=== PATIENT | male | born 1930 | race Caucasian/White ===

== ENCOUNTER 2016-08-19 14:03 | Emergency (ER) | payer MEDICARE ==
[~2016-08-19] VITALS: Ht 172.7 cm; Wt 59.0 kg
[2016-08-19 14:05] VITALS: BP 125/55; PULSE 80; RESP 16; TEMP 98.2; O2SAT 98
[2016-08-19] MEDS ORDERED: LISI-519 PO (14:43)
[2016-08-19] MEDS ORDERED: SODIUM CHLOR 0.9% 1000 ML INJ 1,000 ML IV ONE (14:45)
[2016-08-19 15:03] LABS: AUTOMATED NEUTROPHIL # 10.7 TH/MM3 (1.8-7.7); BASOPHIL # 0.2 TH/MM3 (0-0.2); BASOPHIL % 1.9 % (0.0-2.0); EOSINOPHIL % 0.2 % (0.0-4.0); HEMATOCRIT 38.4 % (39.0-51.0); HEMO FLAGS DIFF FINAL; LYMPH % 2.5 % (9.0-44.0); LYMPHOCYTE # 0.3 TH/MM3 (1.0-4.8); MEAN CELL VOLUME 93.1 FL (80.0-100.0); MEAN CORPUSCULAR HEMOGLOBIN 31.9 PG (27.0-34.0); MEAN CORPUSCULAR HGB CONC 34.2 % (32.0-36.0); MONO % 3.4 % (0.0-8.0); PLATELET COUNT 175 TH/MM3 (150-450); RED BLOOD COUNT 4.12 MIL/MM3 (4.50-5.90); RED CELL DISTRIBUTION WIDTH 12.6 % (11.6-17.2); WHITE BLOOD COUNT 11.6 TH/MM3 (4.0-11.0)
[2016-08-19 15:20] LABS: GLOMERULAR FILTRATION RATE 71 ML/MIN (>89)
[2016-08-19 15:21] LABS: CHLORIDE 103 MEQ/L (98-107); POTASSIUM 4.3 MEQ/L (3.5-5.1); SODIUM (NA) 141 MEQ/L (136-145)
[2016-08-19 15:22] LABS: BLOOD UREA NITROGEN 31 MG/DL (7-18)
--- NOTE | 2016-08-19 15:26 | PD ---
HPI Chief Complaint: GI Complaint Time Seen by Provider: 14:22 Travel History International Travel<30 days: No Contact w/Intl Traveler<30days: No Traveled to known affect area: No History of Present Illness HPI Patient is an 86-year-old male who comes in complaining of feeling shaky. He says that he had 2 days of constipation, he took 2 suppositories as well as a Fleet enema this morning and had a large bowel movement. Shortly afterwards he felt very shaky and his took his blood pressure and it was low. On arrival here, his blood pressure is 125/55. He says he is feeling cold, but otherwise he is feeling a little bit better. His said she gave him some Gatorade and that seemed to have helped. He said he had a little bit of abdominal pain prior to this occurring, but it felt like he just needed to use the bathroom. He denies any chest pain or shortness of breath. He says he had some pain in his rectum with straining. He has not noticed any blood in his stool. [facility] Past Medical History Hypertension: Yes Influenza Vaccination: Yes Social History Alcohol Use: Yes (OCCAS) Tobacco Use: No Substance Use: No Allergies-Medications (Allergen,Severity, Reaction): Coded Allergies: Indocin (Verified Allergy, Intermediate, HIVES, 08/19/16) Reported Meds & Prescriptions Reported Meds & Active Scripts Active Reported Lisinopril 5 Mg Tab 5 Mg PO DAILY Review of Systems Except as stated in HPI: all other systems reviewed are Neg General / Constitutional: Positive: Chills, No: Fever Eyes: No: Blurred Vision HENT: No: Headaches, Lightheadedness Cardiovascular: No: Chest Pain or Discomfort Respiratory: No: Shortness of Breath Gastrointestinal: Positive: Constipation, No: Nausea, Vomiting Genitourinary: No: Dysuria Musculoskeletal: No: Myalgias Skin: No Rash, No Change in Pigmentation Neurologic: Positive: Weakness Physical Exam Narrative GENERAL: Awake and alert, in no acute distress. SKIN: Focused skin assessment warm/dry. HEAD: Atraumatic. Normocephalic. EYES: Pupils equal and round. No scleral icterus. ENT: Mucous membranes pink and moist. NECK: Trachea midline. No JVD. CARDIOVASCULAR: Regular rate and rhythm. No murmur appreciated. RESPIRATORY: No accessory muscle use. Clear to auscultation. Breath sounds equal bilaterally. GASTROINTESTINAL: Abdomen soft, non-tender, nondistended. RECTAL: No bleeding, no masses. Mild tenderness on palpation. MUSCULOSKELETAL: No obvious deformities. No clubbing. No cyanosis. No edema. NEUROLOGICAL: Awake and alert. No obvious cranial nerve deficits. Motor grossly within normal limits. Normal speech. PSYCHIATRIC: Appropriate mood and affect; insight and judgment normal. Data Data Last Documented VS Vital Signs Date Time Temp Pulse Resp B/P Pulse Ox O2 Delivery O2 Flow Rate FiO2 08/19/16 14:05 98.2 80 16 125/55 98 Orders Complete Blood Count With Diff (08/19/16 14:40) Comprehensive Metabolic Panel (08/19/16 14:40) Electrocardiogram (08/19/16 ) Sodium Chlor 0.9% 1000 Ml Inj (Ns 1000 M (08/19/16 14:45) Labs Laboratory Tests Test 08/19/16 14:54 White Blood Count 11.6 TH/MM3 Red Blood Count 4.12 MIL/MM3 Hemoglobin 13.1 GM/DL Hematocrit 38.4 % Mean Corpuscular Volume 93.1 FL Mean Corpuscular Hemoglobin 31.9 PG Mean Corpuscular Hemoglobin 34.2 % Concent Red Cell Distribution Width 12.6 % Platelet Count 175 TH/MM3 Mean Platelet Volume 8.0 FL Neutrophils (%) (Auto) 92.0 % Lymphocytes (%) (Auto) 2.5 % Monocytes (%) (Auto) 3.4 % Eosinophils (%) (Auto) 0.2 % Basophils (%) (Auto) 1.9 % Neutrophils # (Auto) 10.7 TH/MM3 Lymphocytes # (Auto) 0.3 TH/MM3 Monocytes # (Auto) 0.4 TH/MM3 Eosinophils # (Auto) 0.0 TH/MM3 Basophils # (Auto) 0.2 TH/MM3 CBC Comment DIFF FINAL Differential Comment Sodium Level 141 MEQ/L Potassium Level 4.3 MEQ/L Chloride Level 103 MEQ/L Blood Urea Nitrogen 31 MG/DL Creatinine 1.00 MG/DL Estimat Glomerular Filtration 71 ML/MIN Rate Random Glucose 97 MG/DL [facility] Medical Decision Making Medical Screen Exam Complete: Yes Emergency Medical Condition: Yes Medical Record Reviewed: Yes Differential Diagnosis Dehydration versus constipation versus anemia versus electrolyte abnormality Narrative Course Patient is an 86-year-old male who comes in after episode of shakiness after having a very large bowel movement. Exam shows no acute abnormalities. IV established, labs sent. Patient given IV fluids. Labs are suggestive of dehydration with a BUNs of 31 and a creatinine of 1.0. Patient reports feeling better after IV fluids. He is no longer shaking. He has no other complaints. His abdomen is soft and nontender. He has an appointment with his primary care doctor in the next week. Advised follow-up at this appointment. Advised to increase his fluid intake. Advised to increase his fiber intake. Advised to return to the ED as needed for any worsening symptoms. Both he and his are comfortable with discharge at this time. Diagnosis Primary Impression: Dehydration Patient Instructions: Constipation (ED), Dehydration (ED), General Instructions Additional Instructions: Increase your fluid intake. Follow up with your primary care doctor. Return to the ED as needed for any worsening symptoms. Disposition: 01 DISCHARGE HOME Condition: Stable Irma Amanda MD August 19, 2016 15:26
[2016-08-19 16:31] LABS: ALKALINE PHOSPHATASE 73 U/L (45-117); TOTAL BILIRUBIN ADULT 0.7 MG/DL (0.2-1.0)
[2016-08-19 16:37] LABS: ALT (GPT) 26 U/L (12-78); ANION GAP 6 MEQ/L (5-15); AST (GOT) 28 U/L (15-37); BICARBONATE 31.6 MEQ/L (21.0-32.0)
--- NOTE | 2016-08-20 09:35 | EKG ---
Date Performed: 08/19/2016 Time Performed: 15:08:54 PTAGE: 86 years EKG: Sinus rhythm with PAC(s) Right bundle branch block Abnormal ECG NO PREVIOUS TRACING DOCTOR: Kirt Engel Interpretating Date/Time 08/20/2016 09:33:35
== END 2016-08-19 16:42 | disposition home or self-care (01) ==
LOC: PHED 14:03
DX: E86.0 Dehydration (principal); K59.00 Constipation, unspecified; I10 Essential (primary) hypertension; I45.10 Unspecified right bundle-branch block
CPT/HCPCS: 80053; 85025; 93005; 96360; 99284; J7030

== ENCOUNTER 2016-08-20 19:18 | Emergency (ER) | payer MEDICARE ==
[~2016-08-20] VITALS: Ht 172.7 cm; Wt 58.0 kg
[~2016-08-20 19:18] MED LIST: LISI-519 PO
[2016-08-20 19:21] VITALS: BP 163/84; PULSE 96; RESP 16; TEMP 97.9; O2SAT 97
== END 2016-08-20 20:45 | disposition left against medical advice (07) ==
LOC: NED 19:18
DX: N50.9 Disorder of male genital organs, unspecified (principal)
CPT/HCPCS: 99281

== ENCOUNTER 2017-09-11 10:57 | Inpatient (IN) | payer MEDICARE ==
[2017-09-11] VITALS (13 sets, daily range): BP systolic 73–157; BP diastolic 52–79; PULSE 58–118; RESP 12–20; TEMP 97.5–98; O2SAT 96–99
[~2017-09-11] VITALS: Ht 172.7 cm; Wt 55.3 kg
[2017-09-11] MEDS ORDERED: RAPA8CAP PO (11:15)
[2017-09-11] MEDS ORDERED: FINA5TAB2 (11:15)
[2017-09-11] MEDS ORDERED: LISI-519 PO (11:15)
[2017-09-11] MEDS ORDERED: METO25TA3 PO (11:15)
[2017-09-11] MEDS ORDERED: SODIUM CHLORID 0.9% 500 ML INJ 500 ML IV ONE ×3 (11:30→13:30)
[2017-09-11] MEDS ORDERED: SODIUM CHLORIDE 0.9% FLUSH 10 ML FLUSH IVF PRN (11:30)
[2017-09-11 11:47] LABS: HEMATOCRIT 41.8 % (39.0-51.0); HEMOGLOBIN 13.9 GM/DL (13.0-17.0); MEAN CELL VOLUME 97.4 FL (80.0-100.0); MEAN CORPUSCULAR HEMOGLOBIN 32.4 PG (27.0-34.0); MEAN CORPUSCULAR HGB CONC 33.2 % (32.0-36.0); PLATELET COUNT 206 TH/MM3 (150-450); RED BLOOD COUNT 4.29 MIL/MM3 (4.50-5.90); RED CELL DISTRIBUTION WIDTH 12.7 % (11.6-17.2); WHITE BLOOD COUNT 5.4 TH/MM3 (4.0-11.0)
[2017-09-11 11:48] LABS: AUTOMATED NEUTROPHIL # 3.5 TH/MM3 (1.8-7.7); BASOPHIL # 0.1 TH/MM3 (0-0.2); BASOPHIL % 1.4 % (0.0-2.0); EOSINOPHIL # 0.1 TH/MM3 (0-0.4); EOSINOPHIL % 1.2 % (0.0-4.0); LYMPH % 21.5 % (9.0-44.0); LYMPHOCYTE # 1.2 TH/MM3 (1.0-4.8); MEAN PLATELET VOLUME 7.9 FL (7.0-11.0); MONO % 10.1 % (0.0-8.0); MONOCYTE # 0.5 TH/MM3 (0-0.9); NEUT % 65.8 % (16.0-70.0)
[2017-09-11 11:54] LABS: CHLORIDE 102 MEQ/L (98-107); SODIUM (NA) 138 MEQ/L (136-145)
[2017-09-11 11:57] LABS: CALCIUM 8.9 MG/DL (8.5-10.1)
[2017-09-11 11:58] LABS: ALBUMIN 3.5 GM/DL (3.4-5.0); BICARBONATE 30.3 MEQ/L (21.0-32.0); BLOOD UREA NITROGEN 26 MG/DL (7-18); GLUCOSE,RANDOM 89 MG/DL (74-106)
[2017-09-11 12:01] LABS: ALT (GPT) 26 U/L (12-78); AST (GOT) 17 U/L (15-37); GLOMERULAR FILTRATION RATE 57 ML/MIN (>89); INTERNATIONAL NORMALIZED RATIO 1.1 RATIO; PROTHROMBIN TIME - PATIENT 10.9 SEC (9.8-11.6)
[2017-09-11 12:03] LABS: TOTAL BILIRUBIN ADULT 0.5 MG/DL (0.2-1.0); TOTAL PROTEIN 6.4 GM/DL (6.4-8.2)
[2017-09-11 12:04] LABS: ALKALINE PHOSPHATASE 65 U/L (45-117)
[2017-09-11 12:06] LABS: TROPONIN I LESS THAN 0.02 NG/ML (0.02-0.05)
--- NOTE | 2017-09-11 12:06 | RADRPT ---
EXAM DATE: 09/11/2017 11:57 AM EDT AGE/SEX: 87 years / Male INDICATIONS: Dizziness. CLINICAL DATA: This is the patient's initial encounter. Patient reports that signs and symptoms have been present for 1 day and indicates a pain score of 0/10. MEDICAL/SURGICAL HISTORY: Hypertension. . Hernia repair. RADIATION DOSE: 54.19 CTDI (mGy) COMPARISON: No prior exams available for comparison. TECHNIQUE: CT of the head without contrast. Using automated exposure control and adjustment of the mA and/or kV according to patient size, radiation dose was kept as low as reasonably achievable to ob tain optimal diagnostic quality images. DICOM format image data is available electronically for revi ew and comparison. FINDINGS: Cerebrum: The ventricles are normal for age. There is bilateral cortical atrophy and chronic white matter changes characteristic for patient's age. No evidence of midline shift, mass lesion, hemorrhag e or acute infarction. No extraaxial fluid collections are seen. Posterior Fossa: The cerebellum and brainstem are intact. The 4th ventricle is midline. The cerebe llopontine angle is unremarkable. Extracranial: The visualized portion of the orbits is intact. Skull: The calvaria is intact. No evidence of skull fracture. CONCLUSION: 1. No focal or acute intracranial hemorrhage. 2. Chronic bilateral cortical atrophy and chronic white matter changes. Electronically signed by: Dario Cueva MD 09/11/2017 12:04 PM EDT
--- NOTE | 2017-09-11 12:10 | RADRPT ---
EXAM DATE: 09/11/2017 11:44 AM EDT AGE/SEX: 87 years / Male INDICATIONS: Chest pain CLINICAL DATA: This is the patient's initial encounter. Patient reports that signs and symptoms have been present for 2 days and indicates a pain score of 5/10. MEDICAL/SURGICAL HISTORY: Hypertension. . Hernia repaired COMPARISON: No prior exams available for comparison. FINDINGS: A single AP view of the chest demonstrates the lungs to be symmetrically aerated without evidence of mass, infiltrate or effusion. There is hyperaeration of both lung mathur. The cardiomediastinal cont ours are unremarkable. Osseous structures are intact. CONCLUSION: No acute intrathoracic disease. Electronically signed by: Dario Cueva MD 09/11/2017 12:09 PM EDT
[2017-09-11] MEDS ORDERED: GLUCAGON 1 MG/ML VIAL IV PUSH ONE (13:30)
--- NOTE | 2017-09-11 14:19 | PD ---
HPI Chief Complaint: Cardiac Complaint Time Seen by Provider: 11:16 Travel History International Travel<30 days: No Contact w/Intl Traveler<30days: No Traveled to known affect area: No History of Present Illness HPI Patient is an 87-year-old male who comes in due to dizziness, and feeling unwell. He has been having issues with his blood pressure and heart rate for the past several months. He went to see Dr. Cruz, his parking enforcer on Thursday who increased his metoprolol. He took 25 mg of metoprolol this morning because his pulse was elevated, but his blood pressure was low. He also takes lisinopril, but his says only as needed for high blood pressure. He has not taken this today. He takes finasteride as well for BPH. He says he felt dizzy when standing today. He denies any chest pain or shortness of breath. He denies nausea or vomiting. He denies fever or chills. Severity is moderate. PFSH Past Medical History Diminished Hearing: No Genitourinary: Yes (Prostate) Hypertension: Yes Tetanus Vaccination: Unknown Influenza Vaccination: Yes ?: Not Past Surgical History Abdominal Surgery: Yes (hernia repair x2) Social History Alcohol Use: Yes (OCCAS) Tobacco Use: No Substance Use: No Allergies-Medications (Allergen,Severity, Reaction): Coded Allergies: indomethacin (Unverified Allergy, Intermediate, HIVES, 09/11/17) Reported Meds & Prescriptions Reported Meds & Active Scripts Active Reported Rapaflo (Silodosin) 8 Mg Cap 8 Mg PO EVERY THIRD DAY Finasteride 5 Mg Tab 5 Mg EVERY OTHER DAY Do not crush. Metoprolol Tartrate 25 Mg Tab 12.5 Mg PO DAILY Lisinopril 5 Mg Tab 5 Mg PO DIRECTED Review of Systems Except as stated in HPI: all other systems reviewed are Neg General / Constitutional: No: Fever, Chills HENT: Positive: Lightheadedness, No: Headaches Cardiovascular: No: Chest Pain or Discomfort Respiratory: No: Shortness of Breath Gastrointestinal: No: Nausea, Vomiting Musculoskeletal: No: Myalgias, Edema Skin: No Rash, No Change in Pigmentation Neurologic: Positive: Dizziness Physical Exam Narrative GENERAL: Awake and alert, no acute distress. SKIN: Focused skin assessment warm/dry. No wounds or signs of infection. HEAD: Atraumatic. Normocephalic. EYES: Pupils equal and round. No scleral icterus. Extraocular movements intact. ENT: Mucous membranes pink and moist. NECK: Trachea midline. No JVD. CARDIOVASCULAR: Tachycardia. No murmur appreciated. RESPIRATORY: No accessory muscle use. Clear to auscultation. Breath sounds equal bilaterally. GASTROINTESTINAL: Abdomen soft, non-tender, nondistended. MUSCULOSKELETAL: No obvious deformities. No clubbing. No cyanosis. No edema. NEUROLOGICAL: Awake and alert. No obvious cranial nerve deficits. Motor grossly within normal limits. Normal speech. PSYCHIATRIC: Appropriate mood and affect; insight and judgment normal. Data Data Last Documented VS Vital Signs Date Time Temp Pulse Resp B/P (MAP) Pulse Ox O2 Delivery O2 Flow Rate FiO2 09/11/17 13:15 98.0 109 15 73/61 (65) 98 Room Air Orders Orders Electrocardiogram (09/11/17 11:26) Ckmb (Isoenzyme) Profile (09/11/17 11:26) Complete Blood Count With Diff (09/11/17 11:26) Comprehensive Metabolic Panel (09/11/17 11:26) Prothrombin Time / Inr (Pt) (09/11/17 11:26) Act Partial Throm Time (Ptt) (09/11/17 11:26) Troponin I (09/11/17 11:26) Chest, Single Ap (09/11/17 11:26) Ecg Monitoring (09/11/17 11:26) Bilateral Bp Monitoring (09/11/17 11:26) Iv Access Insert/Monitor (09/11/17 11:26) Oximetry (09/11/17 11:26) Sodium Chloride 0.9% Flush (Ns Flush) (09/11/17 11:30) Sodium Chlorid 0.9% 500 Ml Inj (Ns 500 M (09/11/17 11:30) Ct Brain W/O Iv Contrast(Rout) (09/11/17 ) CKMB (09/11/17 11:36) CKMB% (09/11/17 11:36) Sodium Chlorid 0.9% 500 Ml Inj (Ns 500 M (09/11/17 12:30) Glucagon Inj (Glucagon Inj) (09/11/17 13:30) Sodium Chlorid 0.9% 500 Ml Inj (Ns 500 M (6/22/18 13:30) Labs Laboratory Tests Test 09/11/17 11:36 White Blood Count 5.4 TH/MM3 Red Blood Count 4.29 MIL/MM3 Hemoglobin 13.9 GM/DL Hematocrit 41.8 % Mean Corpuscular Volume 97.4 FL Mean Corpuscular Hemoglobin 32.4 PG Mean Corpuscular Hemoglobin Concent 33.2 % Red Cell Distribution Width 12.7 % Platelet Count 206 TH/MM3 Mean Platelet Volume 7.9 FL Neutrophils (%) (Auto) 65.8 % Lymphocytes (%) (Auto) 21.5 % Monocytes (%) (Auto) 10.1 % Eosinophils (%) (Auto) 1.2 % Basophils (%) (Auto) 1.4 % Neutrophils # (Auto) 3.5 TH/MM3 Lymphocytes # (Auto) 1.2 TH/MM3 Monocytes # (Auto) 0.5 TH/MM3 Eosinophils # (Auto) 0.1 TH/MM3 Basophils # (Auto) 0.1 TH/MM3 CBC Comment DIFF FINAL Differential Comment Prothrombin Time 10.9 SEC Prothromb Time International Ratio 1.1 RATIO Activated Partial Thromboplast Time 27.6 SEC Blood Urea Nitrogen 26 MG/DL Creatinine 1.20 MG/DL Random Glucose 89 MG/DL Total Protein 6.4 GM/DL Albumin 3.5 GM/DL Calcium Level 8.9 MG/DL Alkaline Phosphatase 65 U/L Aspartate Amino Transf (AST/SGOT) 17 U/L Alanine Aminotransferase (ALT/SGPT) 26 U/L Total Bilirubin 0.5 MG/DL Sodium Level 138 MEQ/L Potassium Level 4.2 MEQ/L Chloride Level 102 MEQ/L Carbon Dioxide Level 30.3 MEQ/L Anion Gap 6 MEQ/L Estimat Glomerular Filtration Rate 57 ML/MIN Total Creatine Kinase 114 U/L Creatine Kinase MB 4.3 NG/ML Troponin I LESS THAN 0.02 NG/ML MDM Medical Decision Making Medical Screen Exam Complete: Yes Emergency Medical Condition: Yes Medical Record Reviewed: Yes Interpretation(s) ECG shows a right bundle branch block, SVT at a rate of 110 Differential Diagnosis Medication interaction versus dehydration versus arrhythmia Narrative Course Patient is an 87-year-old male who comes in complaining of feeling unwell. He is noted to be hypotensive with a blood pressure in the 70s systolic. Pulse rate on arrival is 118. IV established, labs sent. Patient given IV fluids. Labs that show a CK-MB of 4.3, no other acute abnormalities. CT head performed shows no acute abnormalities. Chest x-ray shows no acute abnormalities. Last 24 hours Impressions Chest X-Ray 09/11/17 1126 Signed Impressions: CONCLUSION: No acute intrathoracic disease. Head CT 09/11/17 0000 Signed Impressions: CONCLUSION: 1. No focal or acute intracranial hemorrhage. 2. Chronic bilateral cortical atrophy and chronic white matter changes. I spoke with Dr. Cruz regarding the patient. He believes the patient's symptoms are likely due to his slow SVT. He is also concerned about all of his medications. He would like the patient transferred to the main hospital for admission for possible ablation of the SVT. Patient admitted and transferred to the main hospital. Diagnosis Primary Impression: Hypotension Qualified Codes: I95.9 - Hypotension, unspecified Additional Impression: Dysrhythmia, cardiac Qualified Codes: I47.1 - Supraventricular tachycardia Admitting Information Admitting Physician Requests: it Irma Amanda MD Sep 11, 2017 14:19
[2017-09-11] MEDS ORDERED: BISACODYL 10 MG SUPP RECTAL PRN (14:30)
[2017-09-11] MEDS ORDERED: NALOXONE HCL 0.4 MG/ML AMP IV PUSH PRN (14:30)
[2017-09-11] MEDS ORDERED: SENNOSIDES 8.6 MG TAB PO PRN (14:30)
[2017-09-11] MEDS ORDERED: MAGNESIUM HYDROXIDE SUSP 30 ML CUP PO PRN (14:30)
[2017-09-11] MEDS ORDERED: SODIUM CHLORIDE 0.9% FLUSH 10 ML FLUSH IV FLUSH PRN (14:30)
[2017-09-11] MEDS ORDERED: LACTULOSE SYRUP 20 GM/30 ML CUP PO PRN (14:30)
[2017-09-11] MEDS ORDERED: ACETAMINOPHEN 325 MG TAB PO PRN (14:30)
--- NOTE | 2017-09-11 20:32 | HHI.HP ---
[facility] Service [facility] Primary Care Physician Gage Barrios MD Admission Diagnosis SVT, hypotension Diagnoses: Chief Complaint: Dizziness and heart palpitations Travel History International Travel<30 Days: No Contact w/Intl Traveler <30 Da: No Traveled to Known Affected Are: No History of Present Illness 87-year-old male with a history of hypertension and BPH presented to the ED with complaints of dizziness and heart palpitations. Patient states he could feel his heart palpitating today and he asked his to take care of blood pressure and heart racing and his heart rate was elevated at 128 and lower pressure was lower. He states when he stands up he became dizzy. He recently was seen by his mohs surgeon/general dermatologist Dr. Cruz who increased his metoprolol dose. Patient's states she gave him 25 mg of metoprolol this morning because his pulse was elevated. He currently denies any chest pain, shortness of breath, fever or chills. Upon examination his heart rate is back to normal, he denies any further palpitations. . Review of Systems Except as stated in HPI: all other systems reviewed are Neg Past Family Social History Past Medical History Hypertension BPH Past Surgical History Hernia 2 Reported Medications Reported Meds & Active Scripts Active Reported Rapaflo (Silodosin) 8 Mg Cap 8 Mg PO EVERY THIRD DAY Finasteride 5 Mg Tab 5 Mg EVERY OTHER DAY Do not crush. Metoprolol Tartrate 25 Mg Tab 12.5 Mg PO DAILY Lisinopril 5 Mg Tab 5 Mg PO DIRECTED Allergies: Coded Allergies: indomethacin (Unverified Allergy, Intermediate, HIVES, 09/11/17) Family History Patient denies any family history no heart disease or cancer Social History Tobacco use: Denies Alcohol use: Occasional Illicit drug use: Denies Physical Exam Vital Signs Vital Signs Date Time Temp Pulse Resp B/P (MAP) Pulse Ox O2 Delivery O2 Flow Rate FiO2 09/11/17 19:59 97.9 61 16 157/67 (97) 98 09/11/17 17:49 09/11/17 17:09 74 16 107/74 (85) 97 Room Air 09/11/17 16:04 67 12 109/75 (86) 96 Room Air 09/11/17 15:09 66 16 133/73 (93) 98 Room Air 09/11/17 14:35 65 16 130/70 (90) 98 Room Air 09/11/17 14:18 65 16 128/79 (95) 98 09/11/17 13:45 105 15 75/60 (65) 97 Room Air 09/11/17 13:15 98.0 109 15 73/61 (65) 98 Room Air 09/11/17 13:15 107 16 75/58 (64) 99 Room Air 09/11/17 12:18 105 16 75/59 (64) 98 09/11/17 11:47 78/56 (63) 75/52 (60) 09/11/17 11:46 16 98 Room Air 09/11/17 11:03 97.6 118 20 96 Physical Exam GENERAL: This is a well-nourished, well-developed patient, in no apparent distress. SKIN: No rashes, ecchymoses or lesions. Cool and dry. HEAD: Atraumatic. Normocephalic. No temporal or scalp tenderness. EYES: Pupils equal round and reactive. CARDIOVASCULAR: Regular rate and rhythm without murmurs, gallops, or rubs. RESPIRATORY: Clear to auscultation. Breath sounds equal bilaterally. No wheezes , rales, or rhonchi. GASTROINTESTINAL: Abdomen soft, non-tender, nondistended. MUSCULOSKELETAL: Extremities without clubbing, cyanosis, or edema. No calf tenderness. NEUROLOGICAL: Awake and alert. Normal speech. Laboratory Laboratory Tests Test 09/11/17 11:36 White Blood Count 5.4 Red Blood Count 4.29 Hemoglobin 13.9 Hematocrit 41.8 Mean Corpuscular Volume 97.4 Mean Corpuscular Hemoglobin 32.4 Mean Corpuscular Hemoglobin Concent 33.2 Red Cell Distribution Width 12.7 Platelet Count 206 Mean Platelet Volume 7.9 Neutrophils (%) (Auto) 65.8 Lymphocytes (%) (Auto) 21.5 Monocytes (%) (Auto) 10.1 Eosinophils (%) (Auto) 1.2 Basophils (%) (Auto) 1.4 Neutrophils # (Auto) 3.5 Lymphocytes # (Auto) 1.2 Monocytes # (Auto) 0.5 Eosinophils # (Auto) 0.1 Basophils # (Auto) 0.1 CBC Comment DIFF FINAL Differential Comment Prothrombin Time 10.9 Prothromb Time International Ratio 1.1 Activated Partial Thromboplast Time 27.6 Blood Urea Nitrogen 26 Creatinine 1.20 Random Glucose 89 Total Protein 6.4 Albumin 3.5 Calcium Level 8.9 Alkaline Phosphatase 65 Aspartate Amino Transf (AST/SGOT) 17 Alanine Aminotransferase (ALT/SGPT) 26 Total Bilirubin 0.5 Sodium Level 138 Potassium Level 4.2 Chloride Level 102 Carbon Dioxide Level 30.3 Anion Gap 6 Estimat Glomerular Filtration Rate 57 Total Creatine Kinase 114 Creatine Kinase MB 4.3 Troponin I LESS THAN 0.02 Result Diagram: 09/11/17 1136 09/11/17 1136 Imaging Last Impressions Chest X-Ray 09/11/17 1126 Signed Impressions: CONCLUSION: No acute intrathoracic disease. Head CT 09/11/17 0000 Signed Impressions: CONCLUSION: 1. No focal or acute intracranial hemorrhage. 2. Chronic bilateral cortical atrophy and chronic white matter changes. Caprini VTE Risk Assessment Caprini VTE Risk Assessment: No/Low Risk (score <= 1) Caprini Risk Assessment Model Point Value = 1 Point Value = 2 Point Value = 3 Point Value = 5 Age 41-60 Minor surgery BMI > 25 kg/m2 Swollen legs Varicose veins or History of unexplained or recurrent spontaneous Oral contraceptives or hormone replacement Sepsis (< 1 month) Serious lung disease, including pneumonia (< 1 month) Abnormal pulmonary function Acute myocardial infarction Congestive heart failure (< 1 month) History of inflammatory bowel disease Medical patient at bed rest Age 61-74 Arthroscopic surgery Major open surgery (> 45 min) Laparoscopic surgery (> 45 min) Malignancy Confined to bed (> 72 hours) Immobilizing plaster cast Central venous access Age >= 75 History of VTE Family history of VTE Factor V Leiden Prothrombin [id number] Lupus anticoagulant Anticardiolipin antibodies Elevated serum homocysteine Heparin-induced thrombocytopenia Other congenital or acquired thrombophilia Stroke (< 1 month) Elective arthroplasty Hip, pelvis, or leg fracture Acute spinal cord injury (< 1 month) Prophylaxis Regimen Total Risk Factor Score Risk Level Prophylaxis Regimen 0-1 Low Early ambulation 2 Moderate Order ONE of the following: *Sequential Compression Device (SCD) *Heparin 5000 units SQ BID 3-4 Higher Order ONE of the following medications: *Heparin 5000 units SQ TID *Enoxaparin/Lovenox 40 mg SQ daily (WT < 150 kg, CrCl > 30 mL/min) *Enoxaparin/Lovenox 30 mg SQ daily (WT < 150 kg, CrCl > 10-29 mL/min) *Enoxaparin/Lovenox 30 mg SQ BID (WT < 150 kg, CrCl > 30 mL/min) AND/OR *Sequential Compression Device (SCD) 5 or more Highest Order ONE of the following medications: *Heparin 5000 units SQ TID (Preferred with Epidurals) *Enoxaparin/Lovenox 40 mg SQ daily (WT < 150 kg, CrCl > 30 mL/min) *Enoxaparin/Lovenox 30 mg SQ daily (WT < 150 kg, CrCl > 10-29 mL/min) *Enoxaparin/Lovenox 30 mg SQ BID (WT < 150 kg, CrCl > 30 mL/min) AND *Sequential Compression Device (SCD) Assessment and Plan Assessment and Plan 87-year-old male with a history of hypertension and BPH presented to the ED with complaints of dizziness and heart palpitations. Tachycardia on admission EKG reviewed and shows sinus tach with first-degree AV block -Monitor telemetry -Consult cardiology, Dr. Cruz -2d echo ordered by cardiology -Resume home Metoprol 12.5mg daily Hypertension, chronic -Hold home lisinopril due to hypotension -Monitor vitals DVT prophylaxis: SCDs Discussed Condition With Patient and Krista Gabriel Sep 11, 2017 20:32
[2017-09-11] MEDS: SODIUM CHLORIDE 0.9% FLUSH 10 ML FLUSH IV FLUSH SCH (21:00)
[2017-09-12] VITALS (11 sets, daily range): BP systolic 94–161; BP diastolic 61–88; PULSE 50–149; RESP 16–20; TEMP 95.8–98.1; O2SAT 96–98
[2017-09-12] MEDS: METOPROLOL TARTRATE 25 MG TAB PO SCH ×2 (09:00→10:21)
[2017-09-12] MEDS: SODIUM CHLORIDE 0.9% FLUSH 10 ML FLUSH IV FLUSH SCH ×2 (10:20→20:07)
--- NOTE | 2017-09-12 11:56 | HHI.PR ---
Subjective Remarks Pt seen and examined with present in the room. His only complaint is he is frustrated that he had to wait hours to be transferred from to the main hospital. Otherwise he denies chest pain, shortness of breath, abdominal pain, nausea, or vomiting. He paces around the room and states he doesn't want to sit or rest. He no longer feels dizzy and he denies palpitations. Objective Vital Signs Date Time Temp Pulse Resp B/P (MAP) Pulse Ox O2 Delivery O2 Flow Rate FiO2 09/12/17 08:00 97.3 56 20 135/65 (88) 98 09/12/17 05:40 50 09/12/17 03:26 98.1 55 16 161/72 (101) 98 151/78 (102) 149/79 (102) 09/11/17 23:56 97.5 58 16 108/59 (75) 99 09/11/17 19:59 97.9 61 16 157/67 (97) 98 09/11/17 17:49 09/11/17 17:09 74 16 107/74 (85) 97 Room Air 09/11/17 16:04 67 12 109/75 (86) 96 Room Air 09/11/17 15:09 66 16 133/73 (93) 98 Room Air 09/11/17 14:35 65 16 130/70 (90) 98 Room Air 09/11/17 14:18 65 16 128/79 (95) 98 09/11/17 13:45 105 15 75/60 (65) 97 Room Air 09/11/17 13:15 98.0 109 15 73/61 (65) 98 Room Air 09/11/17 13:15 107 16 75/58 (64) 99 Room Air 09/11/17 12:18 105 16 75/59 (64) 98 I/O 09/11/17 09/11/17 09/11/17 09/12/17 09/12/17 09/12/17 07:00 15:00 23:00 07:00 15:00 23:00 Intake Total 1500 ml Balance 1500 ml Intake IV Total 1500 ml Result Diagram: 09/11/17 1136 09/11/17 1136 Imaging Chest X-Ray 09/11/17 1126 Signed Impressions: CONCLUSION: No acute intrathoracic disease. Head CT 09/11/17 0000 Signed Impressions: CONCLUSION: 1. No focal or acute intracranial hemorrhage. 2. Chronic bilateral cortical atrophy and chronic white matter changes. Objective Remarks GENERAL: WN, WD male appearing frustrated and pacing around the room. SKIN: Warm and dry. HEENT: AT/NC. Pupils equal and round. MMM. NECK: Supple no tender LAD or JVD. HEART: Tachycardic with a very strong and prominent apical impulse. LUNGS: CTAB without wheezes or crackles. ABDOMEN: +BS, soft, NT, ND. EXTREMITIES: No LE edema. NEURO: Awake and alert. Nonfocal. A/P Assessment and Plan 87 YOWM with a history of hypertension and BPH admitted overnight for dizziness and palpitations. 1. Sinus tachycardia with first-degree AV block, paroxysmal SVT - Cardiology consulted, Dr. Cruz following; attempting low-dose diltiazem but may require an EP study and possible ablation - Admit to inpatient in the [facility] - Telemetry - 2D echo demonstrating EF 60-65% with normal LV size and wall thickness, there is moderate MV regurgitation and aortic valve sclerosis - Metoprolol discontinued 2. BPH - Patient on an irregular schedule of Flomax and Finasteride but wants to hold it while in the hospital 3. HTN - Home metoprolol changed to diltiazem - Monitor BP DVT prophylaxis: Lovenox Discharge Planning Possible ablation for ThursdayNancie resendiz MD Sep 12, 2017 11:56
--- NOTE | 2017-09-12 12:01 | MB ---
cc: Jamir Cruz MD DATE: 09/12/2017 REASON FOR CONSULTATION: Evaluation of SVT. HISTORY OF PRESENT ILLNESS: Olman Sebastian is an 87-year-old man well known to me. He has a history of hypertension, mitral regurgitation, and a right bundle branch block. He also has been diagnosed with PSVT. ____ it on a Holter monitor where he will go into SVT at a rate of 118 beats per minute for over 2 hours. He is asymptomatic. I referred him to Dr. Ashley for consideration of an EP study. Dr. Ashley advised beta qiana therapy. We have tried beta blockers on him. I just saw him in the office 09/08/2017. One of the things that was noticed is that his blood pressures were going up and down and I think now it is pretty clear as to why he has prolonged episodes of SVT detected on telemetry and when he converts back to sinus rhythm, he feels much better. When he is in the SVT, he is finally sitting down, but if he tries to move around, he is extremely weak and his blood pressure drops. He was in SVT when he went to the ER yesterday. He stayed in sinus rhythm last night and this morning, is back in SVT. The rate varies, currently about 125. He has not had any chest pain or angina. Of concern is that he has mitral regurgitation and I am questioning whether this is a tachycardia-mediated myopathy picture. PAST MEDICAL HISTORY: Includes benign prostatic hypertrophy with frequent nocturia, essential hypertension, irritable bowel syndrome, mitral regurgitation, PSVT, right bundle branch block. PAST SURGICAL HISTORY: Includes cataract surgery, hernia surgery. MEDICATIONS: I had switched him to metoprolol succinate 25 mg daily and lisinopril 5 mg daily. He never got the lisinopril filled. Instead, the had given him 25 mg of regular metoprolol prior to this admission where came in with the SVT. He is on tamsulosin 0.4 mg for his prostate. ALLERGIES: INCLUDE INDOCIN. FAMILY HISTORY: Negative for heart disease. SOCIAL HISTORY: He smoked from age 19 to age 35. Tries to stay somewhat active. Has a glass of wine daily. REVIEW OF SYSTEMS: Has not had any bleeding. Remaining review of systems negative. PHYSICAL EXAMINATION: GENERAL: This is an elderly white male, does not appear to be in acute distress. VITAL SIGNS: Charted. HEENT: Unremarkable. NECK: No JVD. He does have very soft carotid bruits. CHEST: Notable for pectus excavatum. His chest is clear to auscultation. CARDIOVASCULAR: Reveals a mildly laterally displaced PMI with a grade II/ holosystolic MR murmur. ABDOMEN: Soft, nontender. EXTREMITIES: No clubbing, cyanosis, or edema. DIAGNOSTIC STUDIES: EKG shows SVT with retrograde P waves visible at the end of the QRS complex and a right bundle branch block. I did not get an EKG when he was in sinus rhythm. When he was in sinus rhythm on telemetry, it looks like his rates were in the 50s. Hematocrit is 41.8. Creatinine is 1.2. Troponins negative. Chest x-ray showed no acute disease. Head CT showed chronic bilateral cortical atrophy. IMPRESSION: Paroxysmal supraventricular tachycardia causing him some hemodynamic embarrassment. It is somewhat incessant insofar as he will stay in it for hours at a time. The rate is usually around 120, but I see he has gotten up to 140 when this was occurring earlier today. He has failed an attempt to control this with beta qiana. PLAN: I am going to try low-dose diltiazem, but I think ultimately he is going to require an EP study. I am going to have him stay in the hospital, reaching out to my colleague, Dr. Ashley, to see if he can arrange for an ablation on Thursday. MD YAZ Goyal/SUAD , 11:21 AM , 11:58 AM
[2017-09-12] MEDS: DILTIAZEM HCL 30 MG TAB PO SCH ×3 (12:28→23:51)
--- NOTE | 2017-09-12 14:07 | ECHRPT ---
Indication: SHORTNESS OF BREATH CONCLUSIONS The left ventricular systolic function is normal with an estimated ejection fraction in the range of 60-65%. Normal left ventricular size. Wall thickness is normal. No regional wall motion abnormalities are present. Mild thickening of the mitral valve leaflets. Moderate mitral valve regurgitation. Mild posterior mitral valve leaflet prolapse. The mitral valve regurgitation jet is directed anteriorly. Aortic valve sclerosis is present. Mild aortic valve regurgitation. There is mild tricuspid valve regurgitation. The estimated pulmonary arterial pressure is 43.4 mmHg. BP: / HR: Rhythm: Sinus MEASUREMENTS (Male / Female) Normal Values Technical Quality:Fair 2D ECHO LV Diastolic Diameter PLAX 3.8 cm 4.2 - 5.9 / 3.9 - 5.3 cm LV Systolic Diameter PLAX 2.6 cm IVS Diastolic Thickness 1.1 cm 0.6 - 1.0 / 0.6 - 0.9 cm LVPW Diastolic Thickness 1.1 cm 0.6 - 1.0 / 0.6 - 0.9 cm LV Relative Wall Thickness 0.6 RV Internal Dim ED PLAX 2.5 cm LVOT Diameter 1.6 cm LA Systolic Diameter LX 3.1 cm 3.0 - 4.0 / 2.7 - 3.8 cm LV Ejection Fraction MOD 4C 64.4 % LV Ejection Fraction 4C AL 68.5 % M-MODE Aortic Root Diameter MM 2.7 cm AV Cusp Separation MM 1.7 cm DOPPLER AV Peak Velocity 147.0 cm/s AV Peak Gradient 8.6 mmHg AI Peak Velocity 424.5 cm/s AI Peak Gradient 72.1 mmHg AI Pressure Half Time 348.0 ms LVOT Peak Velocity 66.1 cm/s LVOT Peak Gradient 1.7 mmHg AV Area Cont Eq pk 0.9 cm MV Area PHT 4.9 cm Mitral E Point Velocity 82.9 cm/s Mitral A Point Velocity 75.5 cm/s Mitral E to A Ratio 1.1 LV E' Lateral Velocity 6.6 cm/s Mitral E to LV E' Lateral Ratio 12.5 LV E' Septal Velocity 5.6 cm/s Mitral E to LV E' Septal Ratio 14.9 TR Peak Velocity 289.0 cm/s TR Peak Gradient 33.4 mmHg Right Atrial Pressure 10.0 mmHg Pulmonary Artery Systolic Pressu 43.4 mmHg Right Ventricular Systolic Press 43.4 mmHg FINDINGS LEFT VENTRICLE The left ventricular systolic function is normal with an estimated ejection fraction in the range of 60-65%. Normal left ventricular size. Wall thickness is normal. No regional wall motion abnormalities are present. RIGHT VENTRICLE Normal right ventricular size and systolic function. LEFT ATRIUM The left atrial size is normal. RIGHT ATRIUM The right atrial size is normal. A prominent eustachian valve is observed in the right atrium (benign finding). ATRIAL SEPTUM Normal atrial septal thickness without atrial level shunting by limited color doppler interrogation. AORTA The aortic root and proximal ascending aorta are normal in size on limited imaging. MITRAL VALVE Mild thickening of the mitral valve leaflets. Moderate mitral valve regurgitation. Moderate posterior mitral valve leaflet prolapse. The mitral valve regurgitation jet is directed anteriorly. AORTIC VALVE Trileaflet aortic valve. Aortic valve sclerosis is present. Mild aortic valve regurgitation. TRICUSPID VALVE Structurally normal tricuspid valve. There is mild tricuspid valve regurgitation. The estimated pulmonary arterial pressure is 43.4 mmHg. PULMONARY VALVE No pulmonary valve regurgitation or stenosis. VESSELS The inferior vena cava is normal in size. PERICARDIUM No pericardial effusion. Mark Robles MD (Electronically Signed) Final Date:12 September 2017 14:06
--- NOTE | 2017-09-12 15:30 | EKG ---
Date Performed: 09/11/2017 Time Performed: 11:37:57 PTAGE: 87 years EKG: Supraventricular tachycardia Right bundle branch block ABNORMAL ECG Compared to PREVIOUS TRACING , SVT is new. PREVIOUS TRACIN08/19/2016 15.08 DOCTOR: Jamir Cruz Interpretating Date/Time 09/12/2017 15:29:42
[2017-09-12] MEDS: ENOXAPARIN SODIUM 30 MG/0.3 ML SYRINGE SQ SCH (16:51)
[2017-09-13] VITALS (10 sets, daily range): BP systolic 131–159; BP diastolic 68–82; PULSE 59–101; RESP 16–17; TEMP 97.5–97.7; O2SAT 95–98
[2017-09-13] MEDS: DILTIAZEM HCL 30 MG TAB PO SCH ×3 (05:00→18:36)
[2017-09-13 08:48] LABS: BICARBONATE 23.2 MEQ/L (21.0-32.0); CALCIUM 9.4 MG/DL (8.5-10.1); CREATININE 0.93 MG/DL (0.60-1.30)
[2017-09-13] MEDS: METOPROLOL TARTRATE 25 MG TAB PO SCH (09:00)
[2017-09-13] MEDS: SODIUM CHLORIDE 0.9% FLUSH 10 ML FLUSH IV FLUSH SCH ×2 (10:28→21:00)
--- NOTE | 2017-09-13 12:46 | HHI.PR ---
Subjective Remarks Pt seen and examined in follow-up for tachycardia and paroxysmal SVT. No new complaints. Pt reports he is feeling fine. Denies CP, SOB, dizziness, or palpitations. Reports he is always cold. Objective Vital Signs Date Time Temp Pulse Resp B/P (MAP) Pulse Ox O2 Delivery O2 Flow Rate FiO2 09/13/17 11:38 97.6 63 17 139/68 (91) 96 09/13/17 08:20 97.7 64 17 137/77 (97) 98 09/13/17 07:00 85 09/13/17 03:59 101 16 132/70 (90) 97 09/13/17 03:47 59 09/12/17 23:51 72 09/12/17 23:47 97.6 86 18 124/61 (82) 98 09/12/17 20:11 97.6 136 18 136/88 (104) 96 09/12/17 20:00 149 09/12/17 16:00 95.8 69 20 113/61 (78) 98 09/12/17 15:00 82 Result Diagram: 09/11/17 1136 09/13/17 0720 Imaging 2D echocardiogram 09/12: Normal EF 60-65% Normal LV size Wall thickness normal Mild thickening of mitral valve leaflets Moderate mitral valve regurgitation Mild posterior mitral valve leaflet prolapse Aortic valve sclerosis Mild aortic valve regurgitation Mild tricuspid valve regurgitation Estimated pulmonary arterial pressure 43.4 mmHg Objective Remarks GENERAL: WN, WD male resting in bed in NAD. SKIN: Warm and dry. HEENT: AT/NC. Pupils equal and round. MMM. NECK: Supple no tender LAD or JVD. HEART: RRR. LUNGS: CTAB without wheezes or crackles. ABDOMEN: +BS, soft, NT, ND. EXTREMITIES: No LE edema. NEURO: Awake and alert. Nonfocal. A/P Assessment and Plan 87 YOWM with a history of hypertension and BPH admitted overnight for dizziness and palpitations. 1. Sinus tachycardia with first-degree AV block, paroxysmal SVT - Cardiology consulted, Dr. Cruz following - Continue diltiazem - Dr. Ashley consulted for possible bleed - Telemetry - 2D echo demonstrating EF 60-65% with normal LV size and wall thickness, there is moderate MV regurgitation and aortic valve sclerosis - Metoprolol discontinued 2. BPH - Patient on an irregular schedule of Flomax and Finasteride but wants to hold it while in the hospital 3. HTN - Home metoprolol changed to diltiazem - Monitor BP DVT prophylaxis: Lovenox Discharge Planning Possible ablation for ThursdayNancie resendiz MD Sep 13, 2017 12:46
--- NOTE | 2017-09-13 12:58 | PD.CARD.PN ---
Subjective Subjective Remarks No new complaints Objective Medications Current Medications Medications (Trade) Dose Ordered Sig/Gage Route Start Time Stop Time Status Last Admin (NS Flush) 2 ml UNSCH PRN IV FLUSH 09/11/17 14:30 (NS Flush) 2 ml BID IV FLUSH 09/11/17 21:00 09/13/17 10:28 (Tylenol) 650 mg Q4H PRN PO 09/11/17 14:30 (Narcan Inj) 0.4 mg UNSCH PRN IV PUSH 09/11/17 14:30 (Milk Of Magnesia Liq) 30 ml Q12H PRN PO 09/11/17 14:30 (Senokot) 17.2 mg Q12H PRN PO 09/11/17 14:30 (Dulcolax Supp) 10 mg DAILY PRN RECTAL 09/11/17 14:30 (Lactulose Liq) 30 ml DAILY PRN PO 09/11/17 14:30 (Lopressor) 12.5 mg DAILY PO 09/12/17 09:00 (Cardizem) 30 mg Q6HR PO 09/12/17 12:00 09/13/17 05:00 (Lovenox Inj) 30 mg Q24H SQ 09/12/17 15:00 09/12/17 16:51 Vital Signs / I&O Vital Signs Date Time Temp Pulse Resp B/P (MAP) Pulse Ox O2 Delivery O2 Flow Rate FiO2 09/13/17 11:38 97.6 63 17 139/68 (91) 96 09/13/17 08:20 97.7 64 17 137/77 (97) 98 09/13/17 07:00 85 09/13/17 03:59 101 16 132/70 (90) 97 09/13/17 03:47 59 09/12/17 23:51 72 09/12/17 23:47 97.6 86 18 124/61 (82) 98 09/12/17 20:11 97.6 136 18 136/88 (104) 96 09/12/17 20:00 149 09/12/17 16:00 95.8 69 20 113/61 (78) 98 09/12/17 15:00 82 Physical Exam Alert Chest clear CV S1S2 RRR No edema Tele: intermittent SVT 140's Laboratory Laboratory Tests Test 09/12/17 17:52 09/13/17 07:20 Thyroid Stimulating Hormone 3rd Gen 1.910 uIU/ML Blood Urea Nitrogen 22 MG/DL Creatinine 0.93 MG/DL Random Glucose 90 MG/DL Calcium Level 9.4 MG/DL Sodium Level 139 MEQ/L Potassium Level 4.1 MEQ/L Chloride Level 106 MEQ/L Carbon Dioxide Level 23.2 MEQ/L Anion Gap 10 MEQ/L Estimat Glomerular Filtration Rate 77 ML/MIN Assessment and Plan Problem List: (1) PSVT (paroxysmal supraventricular tachycardia) ICD Codes: I47.1 - Supraventricular tachycardia Plan: Consult Dr. Ashley in AM Jamir Cruz MD Sep 13, 2017 12:58
[2017-09-13] MEDS: ENOXAPARIN SODIUM 30 MG/0.3 ML SYRINGE SQ SCH (15:11)
[2017-09-14] VITALS (10 sets, daily range): BP systolic 126–190; BP diastolic 75–96; PULSE 60–138; RESP 16–20; TEMP 97.3–98.4; O2SAT 96–99
[2017-09-14] MEDS: DILTIAZEM HCL 30 MG TAB PO SCH ×4 (00:57→17:56)
--- NOTE | 2017-09-14 08:02 | HHI.PR ---
Subjective Remarks Pt seen and examined in follow-up for tachycardia and paroxysmal SVT. AFVSS. Reports he is feeling well. Has no complaints. Denies CP, SOB, dizziness, palpitations. Objective Vital Signs Date Time Temp Pulse Resp B/P (MAP) Pulse Ox O2 Delivery O2 Flow Rate FiO2 09/14/17 05:23 97.9 65 17 154/75 (101) 09/14/17 04:19 82 09/14/17 00:57 60 09/14/17 00:00 64 09/13/17 23:35 63 16 155/72 (99) 95 09/13/17 20:04 97.5 83 17 131/80 (97) 97 145/69 (94) 159/75 (103) 09/13/17 19:57 89 09/13/17 15:55 97.7 68 17 157/82 (107) 97 09/13/17 15:00 71 09/13/17 11:38 97.6 63 17 139/68 (91) 96 09/13/17 08:20 97.7 64 17 137/77 (97) 98 I/O 09/13/17 09/13/17 09/13/17 09/14/17 09/14/17 09/14/17 07:00 15:00 23:00 07:00 15:00 23:00 # Voids 4 Result Diagram: 09/11/17 1136 09/13/17 0720 Objective Remarks GENERAL: WN, WD male sitting up in bed in NAD. SKIN: Warm and dry. HEENT: AT/NC. Pupils equal and round. MMM. NECK: Supple no tender LAD or JVD. HEART: RRR with 2/6 OMAR. LUNGS: CTAB without wheezes or crackles. ABDOMEN: +BS, soft, NT, ND. EXTREMITIES: No LE edema. NEURO: Awake and alert. Nonfocal. A/P Assessment and Plan 87 YOWM with a history of hypertension and BPH admitted overnight for dizziness and palpitations. 1. Sinus tachycardia with first-degree AV block, paroxysmal SVT - Cardiology consulted, Dr. Cruz following - Continue diltiazem - Dr. Ashley consulted for possible ablation - Telemetry - 2D echo demonstrating EF 60-65% with normal LV size and wall thickness, there is moderate MV regurgitation and aortic valve sclerosis - Metoprolol discontinued 2. BPH - Patient on an irregular schedule of Flomax and Finasteride but wants to hold it while in the hospital 3. HTN - Home metoprolol changed to diltiazem - Monitor BP DVT prophylaxis: Lovenox Discharge Planning Once cleared by cardiology, possible ablation today Nancie Lynch MD Sep 14, 2017 08:02
[2017-09-14] MEDS: METOPROLOL TARTRATE 25 MG TAB PO SCH (09:00)
[2017-09-14] MEDS: SODIUM CHLORIDE 0.9% FLUSH 10 ML FLUSH IV FLUSH SCH ×2 (10:24→20:24)
[2017-09-14] MEDS: ENOXAPARIN SODIUM 30 MG/0.3 ML SYRINGE SQ SCH (16:10)
[2017-09-15] VITALS (23 sets, daily range): BP systolic 124–170; BP diastolic 75–94; PULSE 66–120; RESP 16–18; TEMP 97.6–98.7; O2SAT 96–99
--- NOTE | 2017-09-15 00:02 | MB ---
cc: Thien Ashley MD DATE: 09/14/2017 REASON FOR CONSULTATION: Tachyarrhythmia. HISTORY OF PRESENT ILLNESS: Mr. Sebastian is an 87-year-old gentleman with episode of tachyarrhythmia, previously seen in my office due to tachycardia. Medical management was recommended. come to the emergency room on the due to supraventricular tachycardia. He was admitted. Heart rate very difficult to control. I was consulted for evaluation and management. The chart was reviewed. The patient was evaluated. ALLERGIES: INDOCIN. SOCIAL HISTORY: Negative for smoking and drinking. FAMILY HISTORY: Noncontributory to his current medical condition. MEDICATIONS: Currently, he is on Cardizem 30 mg q. 6 hours. He is on Lovenox subcutaneous q. 24 hours and metoprolol 12.5 mg a day. REVIEW OF SYSTEMS: Currently, referred no chest pain, no chest discomfort or palpitation, no fever. PHYSICAL EXAMINATION: GENERAL: Alert, fully oriented. VITAL SIGNS: Blood pressure on evaluation 142/78, pulse 78, respiratory rate 18. LUNGS: Ventilated. CARDIOVASCULAR: S1, S2. No gallop. No murmur. ABDOMEN: Soft, no mass. EXTREMITIES: No edema. ELECTROCARDIOGRAM: Shows sinus rhythm, a right bundle branch block. Apparently short tachyarrhythmia, diffuse ST changes. Subsequent electrocardiogram shows sinus rhythm, right bundle branch block. LABORATORY DATA: Hemoglobin is 13.9, white blood cell 5.4. Potassium 4.1, creatinine 0.93. ASSESSMENT AND RECOMMENDATIONS: Mr. Sebastian has a bit of supraventricular tachyarrhythmia. He is very symptomatic. 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 He is very symptomatic. He was brought to the emergency room by [facility]. In the past, medical management was considered. Because of the patient with symptoms, he will need electrophysiology study and ablation. The case discussed extensively with him, his , as well as Dr. Cruz. N.p.o. after midnight, ablation in the morning. Thien Ashley MD /TRAY , 07:46 PM , 12:00 AM
[2017-09-15] MEDS ORDERED: POVIDONE IODINE 5% (ANTISEPSIS KIT) 4 APPLICATIONS EACH NARE PRN (04:00)
[2017-09-15] MEDS ORDERED: LACTATED RINGER'S 1000 ML IV PRN (04:00)
[2017-09-15] MEDS ORDERED: CHLORHEXIDINE GLUCONATE 2 % 1 PACK (2 CLOTHS) TOPICAL PRN (04:00)
[2017-09-15] MEDS ORDERED: SODIUM CHLOR 0.9% 1000 ML INJ 1,000 ML IV SCH ×2 (06:00)
[2017-09-15] MEDS ORDERED: HEPARIN-NS/PF INJ 500 ML ONE (07:08)
[2017-09-15] MEDS ORDERED: ISOPROTERENOL INJ PREMIX 50 ML IV ONE (07:08)
[2017-09-15] MEDS ORDERED: LIDOCAINE HCL 1% PF 30 ML VIAL ONE (07:09)
--- NOTE | 2017-09-15 08:59 | CATHPROC ---
Resonant [employer] HIS Report Study Information Study Number Scheduled Start Study Start [id number] 09/15/2017 Sep 15 2017 6:38AM Referring Institution Admit Source Facility Department 1 Other [facility] - Tile Classifier Physician and Clinical Staff Initial Thien Trejo Scrub Woman Kwaku Winter,RT(R) Other Anesthesia, POLE TESTER Recorder Rena Dukes,Bibi Regalado,RT(R) TECH2 Procedures Performed Procedure Location (Site) Vessel Name Ablation Procedure RF Ablation Isthmus Other Equipment Time Tactical Air Control Party Description Size Mfg Part Number Used/Scraped BIOSENSE BREWER CATHETER, CELSIUS, 4MM, D [id number] 08:08 FR 7 Used INC. TYPE QUAD *[id number] 07:15 [employer] BLANKET,WARM AIR CCL * Used *[id number] 07:15 [employer] PACK, CCL CUSTOM * Used *[id number] 07:15 [employer] PACER BANDA, LIMB * 2530 *[id number] Used [id number] 07:35 [employer] CATHETER, JSN, QUAD FR 5 Used *[id number] 07:35 [employer] CATHETER, JSN, QUAD FR 5 Used *[id number] 07:35 [employer] CATHETER, JSN, QUAD FR 5 Used *[id number] 07:35 [employer] CATHETER, JSN, QUAD FR 5 Used *[id number] 07:56 [employer] CATHETER, JSN, QUAD FR 5 Used *[id number] 07:15 [employer] ELECTRODE KIT, BOAZ X SURFACE * Used *[id number] 07:35 [employer] SHEATH, EPS, FR5 FAST CATH FR 5 Used *[id number] 07:35 [employer] SHEATH, EPS, FR5 FAST CATH FR 5 Used *[id number] 07:35 [employer] SHEATH, EPS, FR5 FAST CATH FR 5 Used *[id number] 07:35 [employer] SHEATH, EPS, FR6 FAST CATH FR 6 Used *[id number] 07:35 [employer] SHEATH, EPS, FR8 FAST CATH FR 8 Used *[id number] [facility] PAD, ELECTROSURGICAL 07:15 * [id number] *[id number] Used SURGICAL GROUNDING (BLUE) History: Allergies Allergy Reaction Indocin HIVES indomethacin HIVES History: Risk Factors Hypertension Yes Labs Hgb (g/dl) Hct (%) RBC (MIL/MM3) WBC (l/cumm) Platelets (thousands) 11.60-17.00 35.00-51.00 4.00-5.90 4.00-11.00 150.00-450.00 13.0 41 4.3 5.4 206 Glucose (mg/dl) BUN (mg/dl) Creatinine (mg/dl) BUN:Creatinine (1:x) 74.00-106.00 7.00-18.00 0.50-1.30 10.00-20.00 90 22 0.9 24.4 Na (meq/l) K (meq/l) 136.00-145.00 3.50-5.10 139 4.1 INR (PTT:PT) 0.90-1.10 1.1 Medication Medication Total Dose (Bolus/Oral) Medication Total Dosage/Unit 1% XYLOCAINE 40 mL Medications (Bolus/Oral) Medication Time Given Dosage/Unit Administered By Reason 1% XYLOCAINE 09/15/2017 7:36:48 AM 20 mL Thien Ashley 20 mL 1% XYLOCAINE given in lab by Thien Ashley in Left Groin via Subcutaneous. 1% XYLOCAINE 09/15/2017 7:46:18 AM 20 mL Thien Ashley 20 mL 1% XYLOCAINE given in lab by Thien Ashley in Right Groin via Subcutaneous. Medication (Drip) Medication Time Given Dosage/Unit Concentration/Unit Diluent (ml) Solution ISUPREL 09/15/2017 8:00:41 AM 4 mcg/min 1 mg 250 NaCl .9 4 mcg/min ISUPREL given in lab by Thien Ashley via Peripheral IV. Pump/Drip Flow = 60 ml/hr using Na Cl .9 with a concentration of 1 mg in 250 ml. ISUPREL 09/15/2017 8:31:07 AM 4 mcg/min 1 mg 250 NaCl .9 4 mcg/min ISUPREL given in lab by COLIN Carty via Peripheral IV. Pump/Drip Flow = 60 ml/hr using NaCl .9 with a concentration of 1 mg in 250 ml. Ordered by Thien Ashley. ISUPREL DRIP STOPPED 09/15/2017 8:38:41 AM 0 units/hr 0 0 units/hr ISUPREL DRIP STOPPED given in lab by COLIN Carty. Pump/Drip Flow = 0 ml/hr using [Mary saavedra Name]. Ordered by Thien Ashley. Initial Case Assessment Cardiovascular HR Rhythm NIBP Chest Pain 91 sr 188/105 0 Edema Present Skin color Skin None Normal Warm Dry Circulatory - Right Pulses Dorsalis Pedis 2 Scale (0,1,2,3,4,d) Circulatory - Left Pulses Dorsalis Pedis 2 Scale (0,1,2,3,4,d) Circulatory - Lower Extremities Color Lower Right Color Lower Left Normal Normal Neurological State Oriented to time-place- Alert Moves all extremities person Comment: slow to respond Respiration - General Respiration Rate SpO2 (%) (B/min) 18 98 Final Case Assessment Cardiovascular HR Rhythm NIBP 89 sr 92/58 Edema Present Skin color Skin None Normal Warm Dry Circulatory - Lower Extremities Color Lower Right Color Lower Left Normal Normal Neurological State Oriented to time-place- Lethargic Moves all extremities person Respiration - General Respiration Rate SpO2 (%) O2 (lpm) (B/min) 12 95 2 Chronological Log Time Study Chronological Log 6:57:10 Patient arrived via Bed. 6:57:12 Patient Name, D.O.B, / Armband Verified By R.N. 6:57:13 Consent signed by the physician and the patient and verified by the [facility] Class[facility] staff. 6:57:14 Pre-op and post- op instructions given; patient acknowledges understanding of instructions. 6:57:17 Verbal Stimulation=2 Physical Stimulation=2 Airway=2 Respiration=2 TOTAL=8. (0=absent, 1=gross ited, 2=present) 6:57:29 Anesthesia at bedside. Assumes care of patient. Yanet 6:58:04 Patient has been NPO for More than 6Hrs. 6:58:07 Skin Breakdown- none per pt. Right FA IV site reddened. 6:58:32 Patient Warmer Placed on the Table. 6:58:32 Disposable Defibrillator Pads Placed On Patient. 6:58:34 Antonio Prominences Protected 6:58:35 A # 20 IV was noted in the Forearm (right). Grade = 1 0.9ns kvo 6:58:52 A # 20 IV was noted in the Forearm (left). Grade = 0 0.9ns kvo 6:59:15 History and physical on the chart or being dictated. 7:01:52 Table restraints applied according to hospital policy Assessment: Initial Case, HR=91 BPM, Rhythm=sr, ACGF=110/105 mmhg, Chest Pain=0, Edema=None, Col or=Normal, Skin = Warm, Dry Right Pulses: Andrew Ped=2 Left Pulses: Andrew Ped=2 7:06:16 Lower Right Extremities: Color=Normal Lower Left Extremities: Color=Normal Neurological: State=Alert, Ox3, HARDY, Comment=slow to respond Respiration: Resp=18 B/min, SpO2=98 % 7:15:48 Bilateral groins prepped with 2% chlorhexidine, and draped after a 3 minute waiting time. 7:16:55 MD paged 7:33:02 MD arrived. Time Out. Correct patient, procedure, procedure equipment, site and side verified with physician present. Time 7:36:00 concurred by MD, individual staff and POLE TESTER. Time Out #2 - Consents verified, patient in correct position, all results are labled and display ed, safety precautions 7:36:22 taken, antibiotics administered. Time out concurred by MD, individual staff and POLE TESTER in procedur e 7:36:46 Case Start 7:36:48 20 mL 1% XYLOCAINE given in lab by Thien Ashley in Left Groin via Subcutaneous. 7:38:07 Vascular access was obtained in the Fem Vein (left). 7:38:22 Vascular access was obtained in the Fem Vein (left). 7:38:35 Vascular access was obtained in the Fem Vein (left). 7:39:21 A SHEATH, EPS, FR5 FAST CATH FR 5 was advanced into the Fem Vein (left) using the Modified S eldinger technique. 7:39:30 A SHEATH, EPS, FR5 FAST CATH FR 5 was advanced into the Fem Vein (left) using the Modified S eldinger technique. 7:39:39 A SHEATH, EPS, FR5 FAST CATH FR 5 was advanced into the Fem Vein (left) using the Modified S eldinger technique. 7:46:18 20 mL 1% XYLOCAINE given in lab by Thien Ashley in Right Groin via Subcutaneous. 7:47:26 Vascular access was obtained in the Fem Vein (right). 7:47:42 Vascular access was obtained in the Fem Vein (right). 7:48:39 A SHEATH, EPS, FR6 FAST CATH FR 6 was advanced into the Fem Vein (right) using the Modified Seldinger technique. 7:48:48 A SHEATH, EPS, FR8 FAST CATH FR 8 was advanced into the Fem Vein (right) using the Modified Seldinger technique. A CATHETER, JSN, QUAD FR 5 was advanced vis Fem Vein (right) and placed in the CS. Placement wa s visually 7:51:06 confirmed under fluoroscopy. A CATHETER, JSN, QUAD FR 5 was advanced vis Fem Vein (left) and placed in the HIS. Placement wa s visually 7:51:13 confirmed under fluoroscopy. A CATHETER, JSN, QUAD FR 5 was advanced vis Fem Vein (left) and placed in the RVA. Placement wa s visually 7:51:17 confirmed under fluoroscopy. A CATHETER, JSN, QUAD FR 5 was advanced vis Fem Vein (left) and placed in the HRA. Placement wa s visually 7:51:25 confirmed under fluoroscopy. 7:56:20 EPS in progress. 4 mcg/min ISUPREL given in lab by Thien Ashley via Peripheral IV. Pump/Drip Flow = 60 ml/hr us ing NaCl .9 with a 8:00:41 concentration of 1 mg in 250 ml. 8:06:12 Isuprel off A CATHETER, CELSIUS, 4MM, D TYPE QUAD FR 7 was advanced vis Fem Vein (right) and placed in the Isthmus. 8:07:47 Placement was visually confirmed under fluoroscopy. 8:09:36 RF Ablation of the Isthmus with a CATHETER, CELSIUS, 4MM, D TYPE QUAD FR 7. 4 mcg/min ISUPREL given in lab by Anesthesia, POLE TESTER via Peripheral IV. Pump/Drip Flow = 60 ml/hr using NaCl .9 with 8:31:07 a concentration of 1 mg in 250 ml. Ordered by Thien Ashley. 0 units/hr ISUPREL DRIP STOPPED given in lab by Anesthesia, POLE TESTER. Pump/Drip Flow = 0 ml/hr usin g [Solution Name]. 8:38:41 Ordered by Thien Ashley. 8:40:48 Case End (Physician broke scrub) 8:42:03 Catheter(s) removed without difficulty 8:42:07 Sheath(s) left in place, will be removed in Holding Area 8:42:11 No case complications noted. 8:42:12 Cine recording checked. 8:42:22 Ablation procedure performed: SVT. 8:42:25 EP Procedure was performed. 8:44:00 Bedside Report will be given. 8:44:09 CIC called. Spoke to Nathalie Assessment: Final Case, HR=89 BPM, Rhythm=sr, NIBP=92/58 mmhg, Edema=None, Color=Normal, Skin = Warm, Dry Lower Right Extremities: Color=Normal 8:44:41 Lower Left Extremities: Color=Normal Neurological: State=Lethargic, Ox3, HARDY Respiration: Resp=12 B/min, SpO2=95 %, O2=2 lpm 8:45:35 Sterile dressing applied to site 8:52:29 Patient moved to stretcher 8:55:28 POLE TESTER requesting PACU r/t patient lethargy. PACU called. Spoke to Bibi End Study - Contrast Media Used In Study Contrast Total Opened (mL) Total Used (mL) Total Wasted (mL) Omnipaque 0 0 0 End Study - Maximum Contrast Load Max Contrast Load (mL) 309.3 End Study - Radiation Exposure Fluoro Time (minutes) 12.6 End Study - Patient Disposition Complications Transferred To Telemetry Bed
[2017-09-15] MEDS: SODIUM CHLORIDE 0.9% FLUSH 10 ML FLUSH IV FLUSH SCH ×2 (09:00→21:00)
[2017-09-15] MEDS ORDERED: DO NOT ADM ANY ANTICOAGULANT DRUGS PRN (09:00)
[2017-09-15] MEDS ORDERED: ONDANSETRON ODT 4 MG TAB PO PRN (09:15)
[2017-09-15] MEDS ORDERED: SODIUM CHLOR 0.9% 250 ML INJ 250 ML IV PRN (09:15)
[2017-09-15] MEDS ORDERED: LORazepam 2 MG/ML VIAL IV PUSH PRN (09:15)
[2017-09-15] MEDS ORDERED: LIDOCAINE HCL 1% 50 ML VIAL INFIL PRN (09:15)
[2017-09-15] MEDS ORDERED: ATROPINE SULFATE 1 MG/ML VIAL IV PUSH PRN (09:15)
[2017-09-15] MEDS ORDERED: BACITRACIN OINT 0.9 GM PKT TOP ONE (09:15)
[2017-09-15] MEDS ORDERED: *morphine SULFATE 4 MG/ML PERIprocedure ONLY ONE (09:23)
[2017-09-15] MEDS ORDERED: *LABETALOL HCL 100 MG/20 ML VIAL PERIprocedural Use ONLY ONE (09:23)
[2017-09-15] MEDS ORDERED: MIDAZOLAM HCL 2 MG/2 ML VIAL ONE (09:26)
[2017-09-15] MEDS ORDERED: METOPROLOL TARTRATE 5 MG/5 ML VIAL ONE ×2 (09:27→11:06)
--- NOTE | 2017-09-15 09:59 | MA ---
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 INDICATIONS: Mr.. Sebastian is an 87-year-old gentleman with history of palpitation and a previous hospital visit, admitted due to tachyarrhythmia. Electrophysiology study and ablation decided. The risks, the nature and the benefits of the procedure were clearly said to him. Risks include pneumothorax, cardiac perforation, stroke, need for open heart surgery and even . The patient understood and agreed to proceed. PROCEDURE: After written informed consent was obtained, the patient was brought to the EP lab where he was prepped and draped in the usual sterile fashion. Conscious sedation was initiated and maintained throughout the procedure by anesthesiologist. Once sedation verified, the right and left inguinal area was anesthetized with 2% Xylocaine. Using modified Seldinger technique, the left femoral vein was cannulated on three occasions, 3 guidewires advanced over the wire. Three 5-Afghan Hemaquets were advanced. Then the right femoral vein was cannulated on 2 occasions, 2 guidewires were advanced over the wire. A 6 and an 8-Afghan Hemaquet were advanced. Then, under fluoroscopic guidance through the 5 and 6-Afghan Hemaquet, four 5-Afghan Therese curved quadripolar electrophysiology catheters were advanced and placed at the His, upper right atrium, coronary sinus and the right ventricular apex. Basic interval was measured. They were within normal limits. At this point, atrial pacing protocol was performed. Atrial pacing protocol consisted of incremental atrial pacing as well as program stimulation with 110 cycle length and up to 1 extrastimuli delivered. No tachyarrhythmia was induced. Then, ventricular pacing protocol was performed. There was VA conduction. No tachyarrhythmia was induced. Then, Isuprel infusion was initiated at 4 mcg. Atrial pacing protocol was repeated. During atrial pacing protocol, supraventricular tachyarrhythmia with intracardiac characteristic of AV kit reentry tachycardia was induced. He was pace terminated. Jump and echo beats were observed. Then ventricular pacing protocol was performed. No tachyarrhythmia was induced. At this point, through the 8-Afghan Hemaquet, Cordis Mejias D-curve 4 mm mapping and radiofrequency ablation catheter was advanced. Using EnSite endocardial solution mapping system, a 3-dimensional configuration of the right atrium was obtained. Then, the catheter was placed at the tricuspid valve annulus. When a big V and a small trifurcated A was observed, radiofrequency energy was delivered. The patient went into junctional rhythm. Further burn was delivered in the area. It was very difficult to localize the slow pathway in this patient. Then, atrial pacing protocol was repeated. Again, no tachyarrhythmia was induced. Then, ventricular pacing protocol was repeated. No tachyarrhythmia was induced. Isuprel was infused at 4 mcg again. No tachyarrhythmia was induced. No echo beat. No jump observed. Post-isuprel no tachyarrhythmia was induced. At that point, the procedure was complete. All catheters were removed. The patient is going to be transferred to the recovery room. No incident reported. The patient tolerated the procedure. Blood loss minimal. 1. ELECTROCARDIOGRAM: At baseline, the patient was in sinus. Postprocedure electrocardiogram was unchanged. 2. BASIC INTERVAL: Base, cycle length was around 840 milliseconds, AH at 90 and AV around 62 milliseconds. 3. ATRIAL PACING PROTOCOL: Wenckebach at baseline was around 630 milliseconds. On Isuprel it was around 440 milliseconds. During atrial pacing protocol, supraventricular tachyarrhythmia was induced. 4. VENTRICULAR PACING PROTOCOL: There was V at baseline on Isuprel. No tachyarrhythmia was induced. 5. TACHYARRHYTHMIA: Supraventricular tachyarrhythmia with intracardiac characteristics of AV kit reentrant tachycardia was inducible, was mapped and ablated. Ablation was successful. 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 RECOMMENDATIONS: The patient is going to be transferred to the recovery room. He will be observed. When stable, can be discharged home. MD HUMA Bartlett/ALANA , 09:19 AM , 09:57 AM
[2017-09-15] MEDS ORDERED: PHENYLEPH/NS 1000 MCG/10 ML SYR ONE (11:42)
[2017-09-15] MEDS ORDERED: PHENYLEPHRINE HCL 10 MG/ML VIAL ONE (11:43)
[2017-09-15] MEDS ORDERED: PHENYLEPH/NS 1000 MCG/10 ML SYR IV ONE ×2 (12:00→12:15)
[2017-09-15] MEDS ORDERED: PROPOFOL 200 MG/20 ML AMP IV ONE (12:00)
[2017-09-15] MEDS ORDERED: SODIUM CHLOR 0.9% 1000 ML INJ 1,000 ML ONE (12:02)
[2017-09-15] MEDS ORDERED: DEXTROSE 5% IN WATE 500 ML INJ 500 ML ONE (12:17)
[2017-09-15] MEDS ORDERED: SODIUM CHLOR 0.9% 1000 ML INJ 1,000 ML IV ONE (12:30)
--- NOTE | 2017-09-15 17:12 | HHI.PR ---
Subjective Remarks The patient was seen following his procedure. He was a little lethargic. He appeared uncomfortable. Discussed with his family and nursing at the bedside. Objective Vitals Vital Signs Date Time Temp Pulse Resp B/P (MAP) Pulse Ox O2 Delivery O2 Flow Rate FiO2 09/15/17 16:36 98.0 85 18 163/75 (104) 98 09/15/17 13:41 67 09/15/17 13:34 98.7 70 16 135/78 (97) 99 09/15/17 11:43 61 110/63 09/15/17 11:36 61 17 55/36 (42) 100 Nasal Cannula 3 09/15/17 11:30 67 17 101/62 (75) 100 Nasal Cannula 3 09/15/17 11:20 67 19 118/79 (92) 100 Nasal Cannula 3 09/15/17 11:14 81 17 162/99 (120) 100 Nasal Cannula 3 09/15/17 11:11 74 17 170/111 (130) 100 Nasal Cannula 3 09/15/17 11:03 74 17 204/105 (138) 100 Nasal Cannula 3 09/15/17 10:45 74 17 167/94 (118) 100 Nasal Cannula 3 09/15/17 10:30 79 17 172/94 (120) 100 Nasal Cannula 3 09/15/17 10:15 70 17 149/75 (99) 100 Simple Mask 6 09/15/17 10:00 64 17 142/69 (93) 100 Simple Mask 6 09/15/17 09:50 62 15 124/78 (93) 100 Simple Mask 6 09/15/17 09:39 62 14 130/83 (99) 99 Simple Mask 6 09/15/17 09:35 64 13 120/79 (93) 95 Simple Mask 6 09/15/17 09:35 95 09/15/17 09:34 14 87 Ambu Bag 15 09/15/17 09:32 69 11 131/72 (91) 83 Ambu Bag 15 09/15/17 09:25 75 20 173/117 (135) 100 Room Air 09/15/17 09:20 95 23 161/98 (119) 100 Room Air 09/15/17 09:15 97 20 171/101 (124) 100 Room Air 09/15/17 09:03 97.0 97 22 173/92 (119) 100 Room Air 09/15/17 06:40 76 09/15/17 05:00 97 09/15/17 04:00 96 09/15/17 03:00 97.6 73 18 124/86 (99) 97 09/15/17 03:00 82 09/15/17 02:00 72 09/15/17 01:00 66 09/15/17 00:45 69 147/84 (105) 09/15/17 00:30 164/91 (115) 09/15/17 00:15 97.7 87 18 170/86 (114) 97 09/15/17 00:00 76 09/14/17 20:04 98.4 66 16 139/77 (97) 96 I/O 09/14/17 09/14/17 09/14/17 09/15/17 09/15/17 09/15/17 07:00 15:00 23:00 07:00 15:00 23:00 Intake Total 2525 ml Output Total 350 ml 325 ml Balance -350 ml 2200 ml Intake Oral 525 ml IV Total 2000 ml Output Urine Total 350 ml 325 ml # Bowel Movements 0 Result Diagram: 09/11/17 1136 09/13/17 0720 Imaging Last Impressions Chest X-Ray 09/11/17 1126 Signed Impressions: CONCLUSION: No acute intrathoracic disease. Head CT 09/11/17 0000 Signed Impressions: CONCLUSION: 1. No focal or acute intracranial hemorrhage. 2. Chronic bilateral cortical atrophy and chronic white matter changes. Objective Remarks GENERAL: Appears uncomfortable. SKIN: Warm and dry. HEENT: AT/NC. Pupils equal and round. MMM. NECK: Supple no tender LAD or JVD. HEART: RRR with 2/6 OMAR. LUNGS: CTAB without wheezes or crackles. ABDOMEN: +BS, soft, NT, ND. EXTREMITIES: No LE edema. NEURO: Lethargic. Nonfocal. A/P Assessment and Plan Sinus tachycardia/ Hypotension With first-degree AV block, paroxysmal SVT. Cardiology consulted, Dr. Cruz following. Dr. Ashley consulted for ablation, performed on 09/15. He had agitation and hypotension following the procedure, which resolved. He also had bleeding from the groin access sites. 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 - Telemetry - Metoprolol discontinued. - follow-up with cardiology. - monitor blood pressure. Fluids if needed. - follow CBC and transfuse if needed. HTN Blood pressure fluctuates. - metoprolol d/c. - monitor. BPH Patient on Flomax and Finasteride but wants to hold them while in the hospital. - resume upon discharge. DVT prophylaxis: Luis Armando Kelly DO Sep 15, 2017 17:12
[2017-09-16] VITALS (12 sets, daily range): BP systolic 124–153; BP diastolic 66–97; PULSE 66–122; RESP 16–18; TEMP 97.8–98.1; O2SAT 96–100
[2017-09-16 06:23] LABS: HEMOGLOBIN 11.4 GM/DL (13.0-17.0); MEAN CELL VOLUME 95.1 FL (80.0-100.0); MEAN CORPUSCULAR HEMOGLOBIN 32.7 PG (27.0-34.0); MEAN CORPUSCULAR HGB CONC 34.4 % (32.0-36.0); MEAN PLATELET VOLUME 8.6 FL (7.0-11.0); PLATELET COUNT 178 TH/MM3 (150-450); RED BLOOD COUNT 3.47 MIL/MM3 (4.50-5.90); WHITE BLOOD COUNT 9.5 TH/MM3 (4.0-11.0)
[2017-09-16 06:50] LABS: BICARBONATE 29.6 MEQ/L (21.0-32.0); CALCIUM 8.6 MG/DL (8.5-10.1); CREATININE 0.93 MG/DL (0.60-1.30); MAGNESIUM 1.7 MG/DL (1.5-2.5)
--- NOTE | 2017-09-16 08:02 | PD.CARD.PN ---
Subjective Subjective Remarks Feeling better. Objective Medications Current Medications Medications (Trade) Dose Ordered Sig/Gage Route Start Time Stop Time Status Last Admin (NS Flush) 2 ml UNSCH PRN IV FLUSH 09/11/17 14:30 (NS Flush) 2 ml BID IV FLUSH 09/11/17 21:00 09/15/17 21:00 (Tylenol) 650 mg Q4H PRN PO 09/11/17 14:30 (Narcan Inj) 0.4 mg UNSCH PRN IV PUSH 09/11/17 14:30 (Milk Of Magnesia Liq) 30 ml Q12H PRN PO 09/11/17 14:30 (Senokot) 17.2 mg Q12H PRN PO 09/11/17 14:30 (Dulcolax Supp) 10 mg DAILY PRN RECTAL 09/11/17 14:30 (Lactulose Liq) 30 ml DAILY PRN PO 09/11/17 14:30 (Lovenox Inj) 30 mg Q24H SQ 09/12/17 15:00 Future hold 09/14/17 16:10 (Betadine 5% Antisepsis Kit) 1 applic BICYCLE MESSENGER PRN EACH NARE 09/15/17 04:00 09/18/17 03:59 (Chlorhexidine 2% Cloth) 3 pack BICYCLE MESSENGER PRN TOPICAL 09/15/17 04:00 09/18/17 03:59 (Ativan Inj) 0.5 mg UNSCH PRN IV PUSH 09/15/17 09:15 09/16/17 09:14 (Atropine Inj) 0.5 mg UNSCH PRN IV PUSH 09/15/17 09:15 Sodium Chloride 250 ml @ 500 mls/hr ONCE PRN IV 09/15/17 09:15 09/16/17 09:14 (Zofran Odt) 4 mg Q4H PRN PO 09/15/17 09:15 (Xylocaine 1% Inj (50 ml)) 10 ml UNSCH PRN INFIL 09/15/17 09:15 09/16/17 09:14 ([facility] Nursing Information) ALL NURSING DEPARTME... UNSCH PRN .XX 09/15/17 09:00 09/16/17 08:59 Vital Signs / I&O Vital Signs Date Time Temp Pulse Resp B/P (MAP) Pulse Ox O2 Delivery O2 Flow Rate FiO2 09/16/17 06:00 79 09/16/17 05:00 97 09/16/17 04:00 114 09/16/17 03:00 97.8 92 18 153/97 (115) 96 09/16/17 03:00 102 09/16/17 02:00 122 09/16/17 01:00 116 09/16/17 00:00 116 09/15/17 23:00 98.5 91 18 147/83 (104) 96 09/15/17 23:00 120 09/15/17 22:00 102 09/15/17 21:00 100 09/15/17 20:00 98.4 94 18 167/94 (118) 97 09/15/17 20:00 112 09/15/17 19:00 86 09/15/17 18:00 82 09/15/17 17:00 82 09/15/17 16:36 98.0 85 18 163/75 (104) 98 09/15/17 16:00 89 09/15/17 15:00 88 09/15/17 14:00 81 09/15/17 13:41 67 09/15/17 13:34 98.7 70 16 135/78 (97) 99 09/15/17 13:20 98.3 68 18 123/67 (85) 99 Nasal Cannula 3 09/15/17 13:10 66 18 112/59 (76) 99 Nasal Cannula 3 09/15/17 12:55 67 18 141/60 (87) 99 Nasal Cannula 3 09/15/17 12:40 71 18 143/67 (92) 99 Nasal Cannula 3 09/15/17 12:20 70 18 137/73 (94) 99 Nasal Cannula 3 09/15/17 12:07 65 18 138/70 (92) 99 Nasal Cannula 3 09/15/17 12:03 66 18 113/67 (82) 97 Nasal Cannula 3 09/15/17 12:00 65 18 110/58 (75) 100 Nasal Cannula 3 09/15/17 11:55 64 18 111/58 (75) 100 Nasal Cannula 3 09/15/17 11:51 66 18 113/57 (75) 100 Nasal Cannula 3 09/15/17 11:48 64 17 106/59 (75) 100 Nasal Cannula 3 09/15/17 11:43 61 18 75/52 (60) 100 Nasal Cannula 3 09/15/17 11:43 61 110/63 09/15/17 11:40 63 17 64/44 (51) 100 Nasal Cannula 3 09/15/17 11:36 61 17 55/36 (42) 100 Nasal Cannula 3 09/15/17 11:30 67 17 101/62 (75) 100 Nasal Cannula 3 09/15/17 11:20 67 19 118/79 (92) 100 Nasal Cannula 3 09/15/17 11:14 81 17 162/99 (120) 100 Nasal Cannula 3 09/15/17 11:11 74 17 170/111 (130) 100 Nasal Cannula 3 09/15/17 11:03 74 17 204/105 (138) 100 Nasal Cannula 3 09/15/17 10:45 74 17 167/94 (118) 100 Nasal Cannula 3 09/15/17 10:30 79 17 172/94 (120) 100 Nasal Cannula 3 09/15/17 10:15 70 17 149/75 (99) 100 Simple Mask 6 09/15/17 10:00 64 17 142/69 (93) 100 Simple Mask 6 09/15/17 09:50 62 15 124/78 (93) 100 Simple Mask 6 09/15/17 09:39 62 14 130/83 (99) 99 Simple Mask 6 09/15/17 09:35 64 13 120/79 (93) 95 Simple Mask 6 09/15/17 09:35 95 09/15/17 09:34 14 87 Ambu Bag 15 09/15/17 09:32 69 11 131/72 (91) 83 Ambu Bag 15 09/15/17 09:25 75 20 173/117 (135) 100 Room Air 09/15/17 09:20 95 23 161/98 (119) 100 Room Air 09/15/17 09:15 97 20 171/101 (124) 100 Room Air 09/15/17 09:03 97.0 97 22 173/92 (119) 100 Room Air I/O 09/15/17 09/15/17 09/15/17 09/16/17 09/16/17 09/16/17 07:00 15:00 23:00 07:00 15:00 23:00 Intake Total 2525 ml 840 ml 480 ml Output Total 350 ml 325 ml 500 ml 800 ml Balance -350 ml 2200 ml 340 ml -320 ml Intake Oral 525 ml 840 ml 480 ml IV Total 2000 ml Output Urine Total 350 ml 325 ml 500 ml 800 ml # Bowel Movements 0 0 Physical Exam GENERAL: Well-nourished, well-developed patient. SKIN: Warm and dry. Groin site soft without bruising or bleeding. HEAD: Normocephalic. EYES: No scleral icterus. No injection or drainage. NECK: Supple, trachea midline. No JVD or lymphadenopathy. CARDIOVASCULAR: Regular rate and rhythm without murmurs, gallops, or rubs. RESPIRATORY: Breath sounds equal bilaterally. No accessory muscle use. GASTROINTESTINAL: Abdomen soft, non-tender, nondistended. EXTREMITIES: No cyanosis, or edema. NEUROLOGICAL: Awake, alert, and oriented x 3. Non-focal. Laboratory Laboratory Tests Test 09/16/17 04:51 09/16/17 04:57 Blood Urea Nitrogen 16 MG/DL Creatinine 0.93 MG/DL Random Glucose 97 MG/DL Calcium Level 8.6 MG/DL Magnesium Level 1.7 MG/DL Sodium Level 139 MEQ/L Potassium Level 3.6 MEQ/L Chloride Level 102 MEQ/L Carbon Dioxide Level 29.6 MEQ/L Anion Gap 7 MEQ/L Estimat Glomerular Filtration Rate 77 ML/MIN White Blood Count 9.5 TH/MM3 Red Blood Count 3.47 MIL/MM3 Hemoglobin 11.4 GM/DL Hematocrit 33.0 % Mean Corpuscular Volume 95.1 FL Mean Corpuscular Hemoglobin 32.7 PG Mean Corpuscular Hemoglobin Concent 34.4 % Red Cell Distribution Width 13.0 % Platelet Count 178 TH/MM3 Mean Platelet Volume 8.6 FL Imaging Last Impressions Chest X-Ray 09/11/17 1126 Signed Impressions: CONCLUSION: No acute intrathoracic disease. Head CT 09/11/17 0000 Signed Impressions: CONCLUSION: 1. No focal or acute intracranial hemorrhage. 2. Chronic bilateral cortical atrophy and chronic white matter changes. 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 Can be discharged home at the discretion of the managing team. Follow-up with Dr. Ashley in 3 weeks per my discussion with him. Eloisa Slaughter Sep 16, 2017 08:02
[2017-09-16] MEDS ORDERED: POTASSIUM CHLORIDE 20 MEQ CONTROLLED RELEASE TAB PO ONE (09:00)
[2017-09-16] MEDS: SODIUM CHLORIDE 0.9% FLUSH 10 ML FLUSH IV FLUSH SCH (09:00)
[2017-09-16] MEDS ORDERED: SOTALOL HCL 80 MG TAB PO SCH (09:45)
[2017-09-16] MEDS ORDERED: SOTA80 PO (10:54)
--- NOTE | 2017-09-16 11:10 | HHI.DCPOC ---
Discharge Care Plan Diagnosis: (1) Dysrhythmia, cardiac (2) Hypotension (3) AVNRT (AV kit re-entry tachycardia) Goals to Promote Your Health * To prevent worsening of your condition and complications * To maintain your health at the optimal level Directions to Meet Your Goals Take your medications as prescribed Follow your dietary instruction Follow activity as directed Keep your appointments as scheduled Take your immunizations and boosters as scheduled If your symptoms worsen call your PCP, if no PCP go to Urgent Care Center or Emergency Room Smoking is Dangerous to Your Health. Avoid second hand smoke Call the 24-hour hour crisis hotline for domestic abuse at Luis Armando Zarate DO Sep 16, 2017 11:10
--- NOTE | 2017-09-16 11:18 | HHI.DS ---
Discharge Summary Admission Date Sep 12, 2017 at 17:31 Discharge Date: Sep 16, 2017 Admitting Diagnosis SVT, hypotension (1) AVNRT (AV kit re-entry tachycardia) ICD Code: I47.1 - Supraventricular tachycardia Diagnosis: Principal (2) Hypotension ICD Code: I95.9 - Hypotension, unspecified Diagnosis: Principal Status: Acute (3) Dysrhythmia, cardiac ICD Code: I49.9 - Cardiac arrhythmia, unspecified Diagnosis: Principal Status: Acute Procedures Ablation 09/15 Brief History - From Admission 87-year-old male with a history of hypertension and BPH presented to the ED with complaints of dizziness and heart palpitations. Patient states he could feel his heart palpitating today and he asked his to take care of blood pressure and heart racing and his heart rate was elevated at 128 and lower pressure was lower. He states when he stands up he became dizzy. 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 Cruz who increased his metoprolol dose. Patient's states she gave him 25 mg of metoprolol this morning because his pulse was elevated. He currently denies any chest pain, shortness of breath, fever or chills. Upon examination his heart rate is back to normal, he denies any further palpitations. . CBC/BMP: 09/16/17 0457 09/16/17 0451 Significant Findings Laboratory Tests Test 09/16/17 04:51 09/16/17 04:57 Estimat Glomerular Filtration Rate 77 ML/MIN (>89) Red Blood Count 3.47 MIL/MM3 (4.50-5.90) Hemoglobin 11.4 GM/DL (13.0-17.0) Hematocrit 33.0 % (39.0-51.0) Imaging Last Impressions Chest X-Ray 09/11/17 1126 Signed Impressions: CONCLUSION: No acute intrathoracic disease. Head CT 09/11/17 0000 Signed Impressions: CONCLUSION: 1. No focal or acute intracranial hemorrhage. 2. Chronic bilateral cortical atrophy and chronic white matter changes. PE at Discharge GENERAL: Appears uncomfortable. SKIN: Warm and dry. HEENT: AT/NC. Pupils equal and round. MMM. NECK: Supple no tender LAD or JVD. HEART: RRR with 2/6 OMAR. LUNGS: CTAB without wheezes or crackles. ABDOMEN: +BS, soft, NT, ND. EXTREMITIES: No LE edema. NEURO: Lethargic. Nonfocal. Pt update on day of discharge The patient was walking around the room. He denied any acute complaints. He was looking forward to being discharged. His family was at the bedside. Their questions were answered. Discussed with nursing and cardiology. Hospital Course Sinus tachycardia/ Hypotension With first-degree AV block, paroxysmal SVT. Cardiology was consulted. EP was also consulted. The pt is s/p ablation on 09/15. He had agitation and hypotension following the procedure, which resolved. He also had bleeding from the groin access site and has some residual bruising. 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 He was monitored on telemetry. Lopressor was discontinued. HR was elevated on 09/16 so cardiology was contacted and sotalol was initiated. The pt's rate was controlled with sotalol. He will follow up with cardiology as an outpt. HTN Blood pressure was low following the above procedure. Blood pressure has become elevated again. Sotalol has been added. He will continue lisinopril. He will follow up with his PCP. Anemia S/t bleeding/ bruising at the procedure sites. No hematoma appreciated. He will follow up with cardiology and his PCP. BPH Patient on Flomax and Finasteride but wants to hold them while in the hospital. He will resume his home regimen upon discharge. Pt Condition on Discharge: Stable Discharge Disposition: Discharge Home Discharge Time: > 30 minutes Discharge Instructions DIET: Follow Instructions for: Heart Healthy Diet Activities you can perform: Weight Bearing as Kelly Follow up Referrals: Appointment for Follow Up Cardiology - 2 Weeks with Thien Ashley MD PCP Follow-up - 1 Week New Medications: Sotalol (Sorine) 80 Mg Tab 80 MG PO Q12HR for Heart rate, #60 TAB Continued Medications: Finasteride (Finasteride) 5 Mg Tab 5 MG EVERY OTHER DAY for Manage Prostate Problems, #30 TAB 0 Refills Do not crush. Lisinopril (Lisinopril) 5 Mg Tab 5 MG PO DIRECTED for Blood Pressure Management, #30 TAB 0 Refills Silodosin (Rapaflo) 8 Mg Cap 8 MG PO every third day for Manage Prostate Problems, #30 CAP 0 Refills Discontinued Medications: Metoprolol Tartrate (Metoprolol Tartrate) 25 Mg Tab 12.5 MG PO DAILY, #30 TAB 0 Refills Luis Armando Zarate DO Sep 16, 2017 11:18
--- NOTE | 2017-09-16 20:31 | EKG ---
Date Performed: 09/16/2017 Time Performed: 03:06:50 PTAGE: 87 years EKG: Sinus rhythm with PAC(s) Right bundle branch block Abnormal ECG PREVIOUS TRACING : 09/15/2017 14.07 Since the previous tracing, no significant change noted DOCTOR: Medina Bowser Interpretating Date/Time 09/16/2017 20:30:11
--- NOTE | 2017-09-16 21:32 | EKG ---
Date Performed: 09/15/2017 Time Performed: 14:07:18 PTAGE: 87 years EKG: Sinus rhythm . Right bundle branch block Low QRS voltages in limb leads Abnormal ECG PREVIOUS TRACING : 09/11/2017 11.37 Compared to previous tracing, rate slower DOCTOR: Medina Bowser Interpretating Date/Time 09/16/2017 21:32:12
== END 2017-09-16 12:13 | disposition home or self-care (01) | DRG 274 ==
LOC: PHED 10:57 → PHEDA 14:29 → OBSVTOIN 14:29 → INTOOBSV 14:29 → NEPGCP 18:44 → OBSVTOIN 09-12 17:31 → HCIS 09-14 23:35
PROVIDERS: ADMIT Hospitalist; ATTEND Hospitalist
PROC: 02K83ZZ Map Conduction Mechanism, Percutaneous Approach (ICD-10-PCS; 2017-09-15)
PROC: 4A0234Z Measurement of Cardiac Electrical Activity, Percutaneous Approach (ICD-10-PCS; 2017-09-15)
PROC: 02583ZZ Destruction of Conduction Mechanism, Percutaneous Approach (ICD-10-PCS; principal; 2017-09-15 08:45)
DX: I47.1 Supraventricular tachycardia (principal); I42.8 Other cardiomyopathies; I97.618 Postprocedural hemorrhage of a circulatory system organ or structure following other circulatory system procedure; I95.9 Hypotension, unspecified; D64.9 Anemia, unspecified; I45.10 Unspecified right bundle-branch block; I10 Essential (primary) hypertension; N40.0 Benign prostatic hyperplasia without lower urinary tract symptoms; I08.0 Rheumatic disorders of both mitral and aortic valves; Y84.0 Cardiac catheterization as the cause of abnormal reaction of the patient, or of later complication, without mention of misadventure at the time of the procedure; Z87.891 Personal history of nicotine dependence
CPT/HCPCS: 70450; 71045; 80048; 80053; 82550; 82552; 83735; 84443; 84484; 85025; 85027; 85610; 85730; 93005; 93306; 93613; 93623; 93653; 96361; 96374; C1730; C1732; C2630; G0378; J1610; J1644; J1650; J2250; J2270; J2370; J3010; J7030; J7040; J7060